=== PATIENT | female | born 1980 | race Caucasian/White ===

== ENCOUNTER 2020-09-09 18:05 | Emergency (ER) | payer OTHER ==
[~2020-09-09] VITALS: Ht 154.9 cm; Wt 76.1 kg
[2020-09-09 18:15] VITALS: BP 153/95
--- NOTE | 2020-09-09 18:43 | PHYS DOC ---
Adult General Chief Complaint Chief Complaint: HYPERTENSION HPI HPI Patient is a 40-year-old female patient presented to the ED today complaining of hypertension. Patient states she gave 5 days ago, she states she was delivered 2 weeks early due to preeclampsia. She states she was asked to monito r her blood pressures at home, she states she has been checking on it and noted it is running in the 160s over 80s to 90s. She states she has a swishing sound behind her head. Denies any chest pain or shortness of breath. She is requesting to be put on blood pressure medicine stating her doctor is in [place] (JENNIFER VITALE APRN) Review of Systems Review of Systems Constitutional: Denies fever or chills [] Eyes: Denies change in visual acuity, redness, or eye pain [] HENT: Denies nasal congestion or sore throat [] Respiratory: Denies cough or shortness of breath [] Cardiovascular: Reports high blood pressure. No additional information not addressed in HPI [] GI: Denies abdominal pain, nausea, vomiting, bloody stools or diarrhea [] : Denies dysuria or hematuria [] Musculoskeletal: Denies back pain or joint pain [] Integument: Denies rash or skin lesions [] Neurologic: reports swishing in the head, focal weakness or sensory changes [] All other systems were reviewed and found to be within normal limits, except as documented in this note. (JENNIFER VITALE APRN) Allergies Allergies Allergies Coded Allergies Type Severity Reaction Last Updated Verified Penicillins Allergy Unknown 09/09/20 Yes dextromethorphan Allergy Unknown 09/09/20 Yes (JENNIFER VITALE APRN) Physical Exam Physical Exam Constitutional: Well developed, well nourished, no acute distress, non-toxic appearance. [] HENT: Normocephalic, atraumatic, bilateral external ears normal, oropharynx moist, no oral exudates, nose normal. [] Eyes: PERRLA, EOMI, conjunctiva normal, no discharge. [] Neck: Normal range of motion, no tenderness, supple, no stridor. [] Cardiovascular:Heart rate regular rhythm, no murmur [] Lungs & Thorax: Bilateral breath sounds clear to auscultation [] Abdomen: Bowel sounds normal, soft, no tenderness, no masses, no pulsatile masses. [] Skin: Warm, dry, no erythema, no rash. [] Back: No tenderness, no CVA tenderness. [] Extremities: No tenderness, no cyanosis, no clubbing, ROM intact, no edema. [] Neurologic: Alert and oriented X 3, normal motor function, normal sensory function, no focal deficits noted. [] Psychologic: Affect normal, judgement normal, mood normal. [] (JENNIFER VITALE APRN) EKG EKG [] (JENNIFER VITALE APRN) Radiology/Procedures Radiology/Procedures [] (JENNIFER VITALE APRN) Heart Score Risk Factors: Risk Factors: DM, Current or recent (<one month) smoker, HTN, HLP, family history of CAD, obesity. Risk Scores: Risk Factors: DM, Current or recent (<one month) smoker, HTN, HLP, family history of CAD, obesity. (JENNIFER VITALE APRN) Course & Med Decision Making Course & Med Decision Making Pertinent Labs and Imaging studies reviewed. (See chart for details) This is a 40-year-old female patient presenting to the ED today complaining of high blood pressure. Patient was diagnosed with preeclampsia and had to be deleted 2 weeks early. She gives back 5 days ago. Blood pressures at home have been running in the 160s over 80s to 90s. Currently in the ED blood pressure was 153/95. Patient was offered a work-up in the ED, she stated she cannot be in the ED for long because she has a baby and needs to go home and breast-feed as well as care for the baby and her three other kids. She is requesting something for her BP. She was put on low-dose labetalol after consultation with Dr. Balbuena. Her doctors is in [place]. Encourage patient to follow-up as soon as possible (JENNIFER VITALE APRN) Course & Med Decision Making The care of this patient was managed by Jennifer the [facility]. I was in the emergency department answer questions. Blood work was offered but patient refused. Patient was started on low-dose blood pressure medication. Close follow up recommended (NICHOLE BALBUENA DO) [place] Disclaimer Dragon Disclaimer This electronic medical record was generated, in whole or in part, using a voice recognition dictation system. (JENNIFER VITALE APRN) Departure Departure: Impression: Primary Impression: Preeclampsia Disposition: 01 DC HOME SELF CARE/HOMELESS Condition: STABLE Referrals: PCP,NO (PCP) follow up with your doctor as soon as you can Patient Instructions: - Preeclampsia and Eclampsia Additional Instructions: You were evaluated in the emergency room for preeclampsia. We put on a a low-do se blood pressure medicine. Take it as prescribed. Please follow-up with your doctor as soon as possible. Scripts Labetalol Hcl (LABETALOL HCL) 100 Mg Tablet 0.5 TAB PO DAILY, #20 TAB Prov: JENNIFER VITALE APRN 09/09/20 Problem Qualifiers Primary Impression: Preeclampsia Trimester: unspecified trimester Qualified Codes: O14.90 - Unspecified pre-eclampsia, unspecified trimester JENNIFER VITALE APRN Sep 09, 2020 18:42 NICHOLE BALBUENA DO Sep 10, 2020 02:22
[2020-09-09] MEDS ORDERED: LABE100T5 PO (18:50)
== END 2020-09-09 19:02 | disposition home or self-care (01) ==
LOC: ER 18:05
DX: O14.95 Unspecified pre-eclampsia, complicating the puerperium (principal); O16.5 Unspecified maternal hypertension, complicating the puerperium; Z98.890 Other specified postprocedural states; Z88.0 Allergy status to penicillin; Z88.8 Allergy status to other drugs, medicaments and biological substances
CPT/HCPCS: 99283